=== PATIENT | male | born 1990 | race Caucasian/White ===

== ENCOUNTER 2020-05-15 15:45 | Emergency (ER) | payer OTHER, SELFPAY ==
--- NOTE | 2020-05-15 15:47 | ED.GENADULT ---
HPI - General Adult General Chief complaint: Urogenital-Male Stated complaint: Abdomen Pain,Groin Pain Time Seen by Provider: 05/15/20 15:47 Source: patient Mode of arrival: ambulatory Limitations: no limitations History of Present Illness HPI narrative: 29-year-old male patient presents to the [facility] with complaints of right-sided groin and lower abdomen pain that started yesterday. Patient denies any fevers, body aches or chills. Denies any nausea, vomiting or diarrhea. Patient denies any injury that he is aware of. Patient denies any pain with urination or pain with defecation. Patient denies any penile discharge. Patient states he is in a monogamous relationship and does not have any concerns for STDs. Patient states that he had a little bit of some lower right-sided abdominal pain yesterday and this morning whenever he bent down to get ready for his day the pain was very sudden and rated at about a 9 out of 10. Patient states that the pain did get better with time and when he stood up. Patient denies taking anything for the pain at this time. Patient states his pain currently is 2 out of 10. Related Data Home Medications Medication Instructions Recorded Confirmed No Home Medications 05/15/20 05/15/20 Allergies Allergy/AdvReac Type Severity Reaction Status Date / Time amoxicillin AdvReac Unknown Rash Verified 05/15/20 15:55 Review of Systems Review of Systems: Narrative: CONSTITUTIONAL: Denies fever, chills, or sweats. EYES: Denies visual changes, redness, or discharge. ENT: Denies rhinorrhea, congestion, sore throat, or otalgia. CARDIOVASCULAR: Denies chest pain, palpitations, or edema. RESPIRATORY: Denies cough or dyspnea. GASTROINTESTINAL: Positive lower right-sided abdominal pain that radiates to the right groin and testicle, denies nausea, vomiting, or diarrhea. GENITOURINARY: Denies dysuria or hematuria. SKIN: Denies rash or itching. MUSCULOSKELETAL: Denies back pain, joint pain, or myalgia. NEUROLOGIC: Denies headache, numbness, or weakness. PSYCHIATRIC: Denies anxiety or depression. [facility] Past Medical History Medical History (Updated 05/15/20 @ 16:20 by FRANCHESCA Alonso) Seasonal allergies Surgical History Surgical History (Updated 05/15/20 @ 15:49 by FRANCHESCA Alonso) History of orthopedic surgery Thumb fracture and wrist fracture Social History Social History (Updated 05/15/20 @ 15:49 by FRANCHESCA Alonso) Smoking status: Current some day smoker Tobacco type: pipe Gender identity (if verbalized by the patient): Male Sexual Orientation (if Verbalized by the Patient): Straight or Heterosexual Comments At the time of my signature I agree with nursing past medical history, surgical, social, and family history. There is no relevant family history pertinent to the presenting complaint. Exam Narrative: Exam Narrative: GENERAL: Well-appearing, well-nourished, and in no acute distress. HEAD: Normocephalic, atraumatic. EYES: PERRLA and EOMI. ENT: Nares clear, no rhinorrhea or epistaxis. Mucous membranes moist. NECK: Supple. No lymphadenopathy CHEST: Clear to auscultation. No respiratory distress. HEART: Regular rate and rhythm. No murmur heard. Normal peripheral pulses. ABDOMEN: Soft, flat, nondistended. No guarding, rebound tenderness, or rigid. No pulsatilla masses. Bowel sounds present in all four quadrants. No organomegaly. Negative Landon?s sign. No periumbicial tenderness. No Supra public tenderness or distension. Good femoral pulses bilaterally. No hernia noted. No scars or surface trauma. No obvious hernia palpated. EXTREMITIES: Normal range of motion. No edema. SKIN: Warm, dry, no rash. NEURO: No focal deficits. Alert and oriented x3. Course Vital Signs Vital signs: Vital Signs Temperature 36.4 C L 05/15/20 16:04 Pulse Rate 67 05/15/20 16:04 Respiratory Rate 16 05/15/20 16:04 Blood Pressure 136/82 05/15/20 16:04 Pulse Oximetry 99 05/15/20
[2020-05-15 16:04] VITALS: BP 136/82; PULSE 67; RESP 16; TEMP 36.4; O2SAT 99
== END 2020-05-15 16:27 | disposition home or self-care (01) ==
PROVIDERS: Emergency Provider Nurse Practitioner Family
DX: S39.011A Strain of muscle, fascia and tendon of abdomen, initial encounter (principal); X50.9XXA Other and unspecified overexertion or strenuous movements or postures, initial encounter; F17.290 Nicotine dependence, other tobacco product, uncomplicated
CPT/HCPCS: 81003; 99212; G0463